=== PATIENT | female | born 1940 | race Caucasian/White ===

== ENCOUNTER 2020-05-11 09:50 | Emergency (ER) | payer MEDICARE, OTHER ==
[2020-05-11] MEDS ORDERED: Sodium Chloride 0.9% 1,000 ML IV ONE (10:17)
--- NOTE | 2020-05-11 10:18 | EDM.PDOC ---
ED HPI GENERAL MEDICAL PROBLEM - General Chief Complaint: General Stated Complaint: STROKE LIKE SYMPTOMS Time Seen by Provider: 05/11/20 10:10 Source of Information: Reports: Patient History Limitations: Reports: No Limitations - History of Present Illness INITIAL COMMENTS - FREE TEXT/NARRATIVE: Patient presents with tingling in left cheek and not thinking clearly this morning. Yesterday she developed a mild headache and around 2000 in the evening noticed swaying when she walked. She lay down on the couch awhile and later it was gone. She thinks it lasted about 30 minutes. She also noticed a small spot on left cheek that felt numb/tingly. She slept find and around 0700 when she awoke she still had the left cheek tingling and it was larger extending to nose and down to left lateral upper lip. Right now the tingling persists and she still has a mild headache but everything else is back to normal. She has a history of CAD and cardiac bypass surgery a few years ago. They attempted angiogram but her vessels were too small she says. - Related Data Allergies Allergy/AdvReac Type Severity Reaction Status Date / Time No Known Drug Allergies Allergy Other Verified 05/11/20 10:33 Home Meds: Home Meds Metoprolol Tartrate 12.5 mg PO DAILY 05/11/20 [History] Rosuvastatin [Crestor] 20 mg PO DAILY 05/11/20 [History] ED ROS GENERAL - Review of Systems Review Of Systems: See Below Constitutional: Denies: Fever, Chills, Malaise, Weakness HEENT: Denies: Ear Pain, Hearing Loss, Throat Pain, Vision Change Respiratory: Denies: Shortness of Breath, Cough Cardiovascular: Denies: Chest Pain, Lightheadedness, Syncope GI/Abdominal: Reports: Bloody Stool (She has had occult blood in stool for nearly two years. She became anemic 21 months ago and was found to have GI bleeding. Hemoglobin was 7 and has since gone back up to 14.6. Upper and lower endoscopies have not identified the source of bleeding definitively but a couple polyps were removed and diverticula were observed. She has seen oncology for this also. The bleeding has definitely improved and doesn't noticeably affect her now but she has to take iron daily and gets rechecked routinely.). Denies: Abdominal Pain, Black Stool (not recently but did several months ago and has gradually improved), Diarrhea, Vomiting : Denies: Dysuria, Flank Pain Musculoskeletal: Denies: Neck Pain, Shoulder Pain, Arm Pain, Back Pain, Hand Pain Skin: Denies: Cyanosis, Jaundice, Mottled, Pallor, Diaphoresis Neurological: Reports: Tingling. Denies: Confusion, Dizziness, Seizure, Syncope, Trouble Speaking, Difficulty Walking Psychiatric: Reports: Anxiety. Denies: Agitation, Confusion Hematologic/Lymphatic: Denies: Anemia ED EXAM, GENERAL - Physical Exam Exam: See Below Exam Limited By: No Limitations General Appearance: Alert, WD/WN, No Apparent Distress Eye Exam: Bilateral Eye: EOMI, Normal Inspection, PERRL Ears: Normal External Exam, Hearing Grossly Normal Nose: Normal Inspection, No Blood Throat/Mouth: Normal Inspection, Normal Lips, Normal Teeth, Normal Oropharynx, Normal Voice, No Airway Compromise Head: Atraumatic, Normocephalic Neck: Normal Inspection, Full Range of Motion Respiratory/Chest: No Respiratory Distress, Lungs Clear, Normal Breath Sounds, No Accessory Muscle Use Cardiovascular: Regular Rate, Rhythm, No Edema, No Murmur GI/Abdominal: Normal Bowel Sounds, Soft, Non-Tender, No Organomegaly, No Distention, No Abnormal Bruit Back Exam: Normal Inspection, Full Range of Motion. No: CVA Tenderness (L), CVA Tenderness (R) Extremities: Normal Inspection, Normal Range of Motion Neurological: Alert, Oriented, CN II-XII Intact, Normal Cognition, No Motor/Sensory Deficits (Sensation of face, cheek and nose were equal on left and right to touch but she still feels the tingling sensation, but not affected by my touch.) Psychiatric: Normal Affect, Normal Mood, Anxious Skin Exam: Warm, Dry, Intact, Normal Color, No Rash Course - Vital Signs Last Recorded V/S: Last Vital Signs Temp 96.7 F L 05/11/20 09:51 Pulse 54 L 05/11/20 10:05 Resp 20 05/11/20 09:51 BP 167/76 H 05/11/20 10:05 Pulse Ox 100 05/11/20 10:05 - Orders/Labs/Meds Orders: Active Orders 24 hr Category Date Time Status EKG Documentation Completion [RC] ASDIRECTED Care 05/11/20 10:49 Active CULTURE URINE [RM] Stat Lab 05/11/20 11:37 Ordered EKG 12 Lead [EK] Urgent Ther 05/11/20 10:49 Ordered Labs: Laboratory Tests 05/11/20 05/11/20 05/11/20 Range/Units 10:25 10:25 11:10 WBC 5.36 (5.00-10.00) 10^3/uL RBC 5.05 (3.80-5.50) 10^6/uL Hgb 14.8 (12.0-16.0) g/dL Hct 44.4 (37.0-47.0) % MCV 87.9 (82.0-92.0) fL MCH 29.3 (27.0-31.0) pg MCHC 33.3 (32.0-36.0) g/dL RDW 13.1 (11.5-14.5) % Plt Count 278 (150-400) 10^3/uL MPV 10.0 (7.4-10.4) fL Immature Gran % (Auto) 0.0 (0.0-5.0) % Neut % (Auto) 57.9 (50.0-70.0) % Lymph % (Auto) 29.3 (20.0-40.0) % Sharkey % (Auto) 10.1 H (2.0-8.0) % Eos % (Auto) 2.1 (1.0-3.0) % Baso % (Auto) 0.6 (0.0-1.0) % Neut # (Auto) 3.11 (2.50-7.00) 10^3/uL Lymph # (Auto) 1.57 (1.00-4.00) 10^3/uL Sharkey # (Auto) 0.54 (0.10-0.80) 10^3/uL Eos # (Auto) 0.11 (0.10-0.30) 10^3/uL Baso # (Auto) 0.03 (0.00-0.10) 10^3/uL Immature Gran # (Auto) 0.00 (0.00-0.50) 10^3/uL Sodium 140 (136-145) mmol/L Potassium 4.7 (3.5-5.1) mmol/L Chloride 104 (98-107) mmol/L Carbon Dioxide 29.0 (21.0-32.0) mmol/L Anion Gap 11.7 (5-15) mmol/L BUN 14 (7-18) mg/dL Creatinine 0.98 (0.51-1.17) mg/dL Est Cr Clr Drug Dosing 33.98 mL/min Estimated GFR (MDRD) 55 mL/min Glucose 100 (70-140) mg/dL Calcium 9.4 (8.7-10.3) mg/dL Total Bilirubin 1.7 H (0.2-1.0) mg/dL AST 17 (15-37) U/L ALT 26 (14-63) U/L Alkaline Phosphatase 103 (46-116) U/L Total Protein 6.9 (6.4-8.2) g/dL Albumin 3.86 (3.40-5.00) g/dL Specimen Type Urinblad Urine Color Yellow (YELLOW) Urine Appearance Clear (CLEAR) Urine pH 6.5 (5.0-9.0) Ur Specific [place] 1.010 (1.005-1.030) Urine Protein Negative (NEGATIVE) mg/dL Urine Glucose (UA) Negative (NEGATIVE) mg/dL Urine Ketones Negative (NEGATIVE) mg/dL Urine Occult Blood Negative (NEGATIVE) Urine Nitrite Negative (NEGATIVE) Urine Bilirubin Negative (NEGATIVE) Urine Urobilinogen 0.2 (0.2-1.0) E.U./dL Ur Leukocyte Esterase Large H (NEGATIVE) Urine RBC 0-5 (0-5) /HPF Urine WBC 10-20 H (0-5) /HPF Ur Epithelial Cells Few /LPF Amorphous Sediment Few (0/HPF) /HPF Urine Bacteria Rare (NONE TO FEW) /HPF Urine Mucus Few H (NEGATIVE) /LPF Meds: Medications Discontinued Medications Generic Name Dose Route Start Last Admin Trade Name Freq PRN Reason Stop Dose Admin Sodium Chloride 1,000 mls @ 999 mls/hr 05/11/20 10:17 05/11/20 10:30 Normal Saline IV 05/11/20 11:17 999 mls/hr .BOLUS ONE Administration - Re-Assessments/Exams Free Text/Narrative Re-Assessment/Exam: 05/11/20 10:56 NIHSS score is 0. Exam is unremarkable. Head CT is pending. 05/11/20 10:[address] is negative per phone call from radiology. 05/11/20 11:41 UA shows large amount of leukocyte esterase. UC pending. Discussed findings and treatment plan with patient and her . Rx for Macrobid 100 mg #10, 1 po bid for 5 days. Patient stable at discharge. Departure - Departure Time of Disposition: 11:43 Disposition: Home, Self-Care 01 Condition: Good Clinical Impression: Tingling of face, UTI (urinary tract infection), uncomplicated - Discharge Information Instructions: Paresthesia, [id number], Urinary Tract Infection, Adult, [id number] Referrals: PCP,Unknown [Ordering Only Provider] - Forms: ED Department Discharge Additional Instructions: Drink 8 cups of water daily. Take the antibiotic as directed. Follow up with your PCP in 7-10 days for recheck. Recheck sooner if any change or worsening, either with PCP or ER. Sepsis Event Note (ED) - Evaluation Sepsis Screening Result: No Definite Risk - Focused Exam Vital Signs: Vital Signs Temp Pulse Resp BP Pulse Ox 05/11/20 10:05 54 L 167/76 H 100 05/11/20 09:51 96.7 F L 61 20 188/74 H 98 - My Orders Last 24 Hours: My Active Orders 05/11/20 10:49 EKG Documentation Completion [RC] ASDIRECTED EKG 12 Lead [EK] Urgent 05/11/20 11:37 CULTURE URINE [RM] Stat - Assessment/Plan Last 24 Hours: My Active Orders 05/11/20 10:49 EKG Documentation Completion [RC] ASDIRECTED EKG 12 Lead [EK] Urgent 05/11/20 11:37 CULTURE URINE [RM] Stat
[2020-05-11 10:48] LABS: ANION GAP 11.7 mmol/L (5-15)
--- NOTE | 2020-05-11 11:00 | CT ---
[id number] CT/CT Head Stroke Protocol EXAM: CT Head Stroke Protocol CLINICAL DATA: HEADACHE, BALANCE OFF LAST NIGHT. COMPARISON STUDY: None FINDINGS: No intracranial hemorrhage, extra-axial fluid collection, mass, or acute ischemia. No hydrocephalus. Calvarium intact. Paranasal sinuses and mastoid air cells are clear. IMPRESSION: No acute intracranial findings. Results relayed to Dr. Randall Crawley at time of dictation. Mejia Wilcox MD 05/11/20 1059 Thank you for allowing us to participate in the care of your patient.
== END 2020-05-11 11:45 | disposition home or self-care (01) ==
LOC: KA.ED 09:50
DX: R20.2 Paresthesia of skin (principal); N39.0 Urinary tract infection, site not specified; I25.10 Atherosclerotic heart disease of native coronary artery without angina pectoris; Z95.1 Presence of aortocoronary bypass graft; Z79.899 Other long term (current) drug therapy
CPT/HCPCS: 70450; 80053; 81001; 85025; 87086; 93005; 99284; 99284-25; J7030

== ENCOUNTER 2025-03-22 03:35 | Emergency (ER) | payer MEDICARE, OTHER ==
[2025-03-22 04:35] LABS: BASOPHILS ABSOLUTE AUTO 0.01 10^3/uL (0.00-0.10); BASOPHILS PERCENT AUTO 0.1 % (0.0-1.0); EOSINOPHILS ABSOLUTE AUTO 0.03 10^3/uL (0.10-0.30); EOSINOPHILS PERCENT AUTO 0.2 % (1.0-3.0); IMMATURE GRAN ABSOLUTE AUTO 0.06 10^3/uL (0.00-0.04); IMMATURE GRAN PERCENT AUTO 0.5 % (0.0-0.4); INR 0.9 (0.9-1.1); LYMPHOCYTES ABSOLUTE AUTO 0.72 10^3/uL (1.00-4.00); LYMPHOCYTES PERCENT AUTO 5.6 % (20.0-40.0); MEAN PLATELET VOLUME 12.4 fL (7.4-10.4); MONOCYTES ABSOLUTE AUTO 0.76 10^3/uL (0.10-0.80); MONOCYTES PERCENT AUTO 5.9 % (2.0-8.0); NEUTROPHILS ABSOLUTE AUTO 11.33 10^3/uL (2.50-7.00); NEUTROPHILS PERCENT AUTO 87.7 % (50.0-70.0); RED BLOOD CELL COUNT 4.38 10^6/uL (3.80-5.50); RED CELL DISTRIBUTION WIDTH 13.6 % (11.5-14.5); WHITE BLOOD CELL COUNT,WBC 12.91 10^3/uL (5.00-10.00)
[2025-03-22] MEDS: Ondansetron 4 MG/2 ML SDV IVPUSH ONE (04:39)
[2025-03-22 04:41] LABS: PLATELET COUNT,PLT 230 10^3/uL (150-400)
[2025-03-22] MEDS: fentaNYL 100 MCG/2 ML SDV IVPUSH ONE ×2 (04:46→05:23)
[2025-03-22 04:50] LABS: ALANINE AMINOTRANSFERASE,ALT 25.0 U/L (14-63); ASPARTATE AMNIOTRANSFERASE,AST 27.0 U/L (15-37); BILIRUBIN TOTAL 0.6 mg/dL (0.2-1.0); BLOOD UREA NITROGEN,BUN 23.0 mg/dL (7-18); CARBON DIOXIDE,CO2 24.6 mmol/L (21.0-32.0); CHLORIDE,CL 105.0 mmol/L (98-107); CREATININE 1.07 mg/dL (0.51-1.17); EST CRCL DRUG DOSING (CG) 28.61 mL/min; GLUCOSE RANDOM 139.0 mg/dL (70-140); POTASSIUM,K 4.0 mmol/L (3.5-5.1); PROTEIN TOTAL,TP 6.8 g/dL (6.4-8.2); SODIUM,NA 142.0 mmol/L (136-145)
[2025-03-22 04:52] LABS: ESTIMATED GFR 52.0 mL/min (>=60)
== END 2025-03-22 05:35 ==
LOC: KA.ED 03:35
DX: S52.602A Unspecified fracture of lower end of left ulna, initial encounter for closed fracture (principal); S52.502A Unspecified fracture of the lower end of left radius, initial encounter for closed fracture; S62.115A Nondisplaced fracture of triquetrum [cuneiform] bone, left wrist, initial encounter for closed fracture; S01.81XA Laceration without foreign body of other part of head, initial encounter; I10 Essential (primary) hypertension; E78.00 Pure hypercholesterolemia, unspecified; I25.2 Old myocardial infarction; Z79.82 Long term (current) use of aspirin; Z79.899 Other long term (current) drug therapy; W10.8XXA Fall (on) (from) other stairs and steps, initial encounter
CPT/HCPCS: 36415; 70450; 70486; 71045; 72125; 72170; 73030; 73110; 80053; 85025; 85610; 96374; 96375; 99284; 99285; J2405; J3010; Q3014